=== PATIENT | male | born 1945 | race Caucasian/White ===

== ENCOUNTER 2018-08-20 11:28 | Outpatient (CLI) | payer BC, MEDICARE, SELFPAY ==
[2018-08-20 12:46] LABS: Hemoglobin A1C 5.7 % (4.5-6.2)
[2018-08-20 13:14] LABS: CREATININE 0.96 mg/dL (0.70-1.30); Cholesterol 208 mg/dL (50-200); HDL Cholesterol 71 mg/dL (40-60); LDL CHOLESTEROL 116 mg/dL (<100); Potassium 4.5 mmol/L (3.5-5.1); Triglyceride 82 mg/dL (30-150)
== END 2018-08-20 11:48 ==
PROVIDERS: PCP Family Medicine; Visit Provider Family Medicine
DX: I10 Essential (primary) hypertension (principal); E74.39 Other disorders of intestinal carbohydrate absorption
CPT/HCPCS: 36415; 80061; 83721; 82565; 83036; 84132

== ENCOUNTER 2020-02-25 10:29 | Outpatient (CLI) | payer BC, SELFPAY ==
[2020-02-25 13:11] LABS: Hemoglobin A1C 5.6 % (<5.7)
[2020-02-25 13:13] LABS: CREATININE 1.08 mg/dL (0.70-1.30); Calculated LDL 131 mg/dL (<100); Cholesterol 220 mg/dL (<200); HDL Cholesterol 72 mg/dL (40-60); Potassium 4.7 mmol/L (3.5-5.1); Triglyceride 89 mg/dL (<150)
== END 2020-02-25 10:49 ==
PROVIDERS: PCP Family Medicine; Visit Provider Family Medicine
DX: I10 Essential (primary) hypertension (principal); E78.5 Hyperlipidemia, unspecified; R73.9 Hyperglycemia, unspecified
CPT/HCPCS: 36415; 80061; 82565; 83036; 84132

== ENCOUNTER 2020-02-26 02:16 | Outpatient (CLI) | payer OTHER, SELFPAY ==
--- NOTE | 2020-02-26 06:15 | DI.US_ITS ---
EXAM: US AAA SCREENING CLINICAL HISTORY: remote smoker,SCREENING FOR AAA,Z87.891 COMPARISON: CT CHEST WITH CONTRAST from 06/30/2008 FINDINGS: Abdominal Aorta: Proximal: 3.1 x 3.1 cm Mid: 2.4 x 2.6 cm Distal: 2.3 by 2.8 cm Iliacs: Right: 1.1 cm Left: 0.9 cm IMPRESSION: Mild dilatation of the proximal aorta, 3.1 cm. DATA REPOSITORY:
== END 2020-02-26 02:36 ==
PROVIDERS: PCP Family Medicine; Visit Provider Family Medicine
DX: Z87.891 Personal history of nicotine dependence (principal)
CPT/HCPCS: 76706

== ENCOUNTER 2020-08-23 03:38 | Outpatient (CLI) | payer BC, SELFPAY ==
[2020-08-23 08:33] LABS: CREATININE 1.1 mg/dL (0.70-1.30); Potassium 4.5 mmol/L (3.5-5.1)
== END 2020-08-23 03:39 | disposition home or self-care (01) ==
LOC: LBO 03:38
PROVIDERS: PCP Family Medicine; Visit Provider Family Medicine
DX: I10 Essential (primary) hypertension (principal)
CPT/HCPCS: 36415; 82565; 84132

== ENCOUNTER 2021-11-14 03:28 | Outpatient (CLI) | payer BC, OTHER, SELFPAY ==
[2021-11-14 07:57] LABS: AST 19 U/L (15-37); BUN 31 mg/dL (7-18); CREATININE 1.3 mg/dL (0.70-1.30); Calcium 8.6 mg/dL (8.5-10.1); Calculated LDL 121 mg/dL (<100); Chloride 101 mmol/L (98-107); Cholesterol 205 mg/dL (<200); Estimated GFR 53.96 (mL/min/1.73m2); Glucose 125 mg/dL (74-106); HDL Cholesterol 76 mg/dL (40-60); LDL CHOLESTEROL 115 mg/dL (<100); Potassium 4.6 mmol/L (3.5-5.1); Sodium 138 mmol/L (136-145); Triglyceride 41 mg/dL (<150)
== END 2021-11-14 03:29 | disposition home or self-care (01) ==
LOC: LBO 03:28
PROVIDERS: PCP Family Medicine; Visit Provider Family Medicine
DX: E78.5 Hyperlipidemia, unspecified (principal); E87.1 Hypo-osmolality and hyponatremia; K76.0 Fatty (change of) liver, not elsewhere classified
CPT/HCPCS: 36415; 80048; 80061; 83721; 84450

== ENCOUNTER 2022-08-30 10:31 | Outpatient (CLI) | payer OTHER, BC, SELFPAY ==
--- NOTE | 2022-08-30 08:00 | DI.RAD_ITS ---
Exam(s) XR SHOULDER RT COMPLETE 2+V EXAM: XR SHOULDER RT COMPLETE 2+V CLINICAL HISTORY: right shoulder pain, M25.511. TECHNIQUE: 2D digital imaging was performed. Five views. COMPARISON: CR RIGHT SHOULDER COMPLETE from 11/10/2014 FINDINGS: BONES: No acute fracture is present. No bony destructive lesion is seen. Spurring greater and lesser tuberosities. JOINTS: No dislocation present. Spurring AC joint and margin of the glenoid. Minimal spurring at th e adjacent humeral head. SOFT TISSUE: Small calcification adjacent to the lesser tuberosity. IMPRESSION: Degenerative changes AC joint and glenohumeral joint. Calcification adjacent to lesser tuberosity co uld be related to the biceps tendon. DATA REPOSITORY: RADIATION DOSE DELIVERED:
== END 2022-08-30 10:51 ==
PROVIDERS: PCP Family Medicine; Visit Provider Nurse Practitioner Family
DX: M25.511 Pain in right shoulder (principal)
CPT/HCPCS: 73030

== ENCOUNTER 2022-09-22 01:26 | Outpatient (CLI) | payer OTHER, SELFPAY ==
--- NOTE | 2022-09-22 08:00 | DI.MRI_ITS ---
Exam(s) MR UPPER JOINT RT WO EXAM: MR UPPER JOINT RT WO CLINICAL HISTORY: RT SHOULDER pain, limited ROM after fall,M25.511,W19.XXXA. TECHNIQUE: Multiplanar multisequence MRI was performed. COMPARISON: CR XR SHOULDER RT COMPLETE 2+V from 08/30/2022 FINDINGS: BONES: There is a mildly displaced fracture of the anterior inferior glenoid. There is associated ma rrow edema. There is marrow edema seen in the superior lateral aspect of the humeral head. JOINTS: There are marked degenerative changes seen at the acromioclavicular joint. There is narrowin g of the glenohumeral joint. TENDONS: Supraspinatus: There is some hyperintense signal seen in the supraspinatus tendon consistent with a p artial tear. Infraspinatus: Unremarkable. Subscapularis: There is tendinosis of the subscapularis tendon. Teres [place]: Unremarkable. Biceps and [place]: The proximal biceps tendon is not visualized suspicious for least a partial tear. On the coronal images there is soft tissue at the superior aspect of the glenohumeral joint which ma y represent a component of a torn biceps anchor. MUSCLES: Unremarkable. GLENOID LABRUM: There is a glenoid labral tear at the inferior anterior margincorresponding to the gl enoid fracture. There is also hyperintense signal seen at the posterior inferior glenoid on the axia l images suspicious for tear. SOFT TISSUES: Unremarkable. LIGAMENTS: There is fluid signal seen in the region of the rotator interval suspicious for tear. OTHER: There is fluid seen in the subacromial subdeltoid bursa. IMPRESSION: 1. Mildly displaced fracture involving the anterior inferior glenoid. Bone contusion involving the ugalde perior lateral aspect of the humeral head. 2. Findings suspicious for rotator interval tear. 3. Decreased size of the biceps tendon suspicious for partial tear. There is soft tissue in the super ior aspect of the glenohumeral joint which may represent a component of a torn biceps anchor. 4. Marked degenerative changes of the acromioclavicular joint. 5. Hyperintense signal seen within the supraspinatus tendon consistent with an intrasubstance tear. DATA REPOSITORY:
== END 2022-09-22 01:46 ==
LOC: DI 01:26
PROVIDERS: PCP Family Medicine; Visit Provider Nurse Practitioner Family
DX: W19.XXXA Unspecified fall, initial encounter; S42.141A Displaced fracture of glenoid cavity of scapula, right shoulder, initial encounter for closed fracture; X58.XXXA Exposure to other specified factors, initial encounter; S46.211A Strain of muscle, fascia and tendon of other parts of biceps, right arm, initial encounter; M75.101 Unspecified rotator cuff tear or rupture of right shoulder, not specified as traumatic
CPT/HCPCS: 73221

== ENCOUNTER 2023-01-04 08:12 | Outpatient (CLI) | payer BC, OTHER, SELFPAY ==
[2023-01-04 12:25] LABS: Anion Gap 8.2 mmol/L (3-11); BUN 16 mg/dL (7-18); CO2 27.8 mmol/L (21.0-32.0); Calcium 9.1 mg/dL (8.5-10.1); Chloride 96 mmol/L (98-107); Estimated GFR 78.49 (mL/min/1.73m2); Glucose 121 mg/dL (74-106); Sodium 132 mmol/L (136-145)
== END 2023-01-04 08:13 | disposition home or self-care (01) ==
LOC: LOS 08:12
PROVIDERS: PCP Family Medicine; Referring Provider Nurse Practitioner Family; Visit Provider Nurse Practitioner Family
DX: I10 Essential (primary) hypertension (principal)
CPT/HCPCS: 36415; 80048

== ENCOUNTER 2023-02-28 03:37 | Outpatient (CLI) | payer BC, SELFPAY ==
[2023-02-28 12:47] LABS: Anion Gap 7.6 mmol/L (3-11); BUN 27 mg/dL (7-18); CO2 27.4 mmol/L (21.0-32.0); Calcium 8.9 mg/dL (8.5-10.1); Chloride 102 mmol/L (98-107); Estimated GFR 78.49 (mL/min/1.73m2); Glucose 119 mg/dL (74-106); Potassium 4.5 mmol/L (3.5-5.1); Sodium 137 mmol/L (136-145)
== END 2023-02-28 03:38 | disposition home or self-care (01) ==
LOC: LOS 03:37
PROVIDERS: PCP Family Medicine; Visit Provider Nurse Practitioner Family
DX: I10 Essential (primary) hypertension (principal)
CPT/HCPCS: 36415; 80048

== ENCOUNTER 2023-05-20 11:06 | Emergency (ER) | payer BC, OTHER, SELFPAY ==
[2023-05-20 11:14] VITALS: BP 182/73; PULSE 52; RESP 16; TEMP 36.8; O2SAT 97
--- NOTE | 2023-05-20 11:33 | W.ED.GENAD ---
HPI General Stated Complaint: Laceration PATRICK: 4 Date/Time Provider Initiated Documentation: 05/20/23 11:24. HPI Narrative: This 77-year-old male presents with right third digit injury on a skill saw just prior to arrival. Denies history of anticoagulation. Denies strength or sensation change. Tetanus is up-to-date in 2018. Related Data Home Medications Medication Instructions Recorded Confirmed triamcinolone acetonide 0.1 % 1 applic topical BID PRN rash #30 07/04/21 01/04/23 topical cream grams tadalafil 20 mg tablet (Cialis) 20 mg PO DAILY PRN erections #30 03/02/22 01/04/23 tabs betamethasone dipropionate 0.05 % 1 applic topical DAILY PRN 06/02/22 01/04/23 topical cream psoriasis #45 grams amlodipine 5 mg tablet 5 mg PO DAILY #90 tabs 07/24/22 01/04/23 tamsulosin 0.4 mg capsule (Flomax) 0.4 mg PO HS #90 tabs 07/26/22 01/04/23 losartan 50 mg-hydrochlorothiazide 2 tab PO DAILY #180 tabs 08/23/22 01/04/23 12.5 mg tablet cephalexin 500 mg capsule 500 mg PO Q6H 7 days #28 caps 05/20/23 cephalexin 500 mg capsule 500 mg PO Q6H 7 days #28 caps 05/20/23 Previous Rx's Medication Instructions Recorded triamcinolone acetonide 0.1 % 1 applic topical BID PRN rash #30 07/04/21 topical cream grams tadalafil 20 mg tablet (Cialis) 20 mg PO DAILY PRN erections #30 03/02/22 tabs betamethasone dipropionate 0.05 % 1 applic topical DAILY PRN 06/02/22 topical cream psoriasis #45 grams amlodipine 5 mg tablet 5 mg PO DAILY #90 tabs 07/24/22 tamsulosin 0.4 mg capsule (Flomax) 0.4 mg PO HS #90 tabs 07/26/22 losartan 50 mg-hydrochlorothiazide 2 tab PO DAILY #180 tabs 08/23/22 12.5 mg tablet cephalexin 500 mg capsule 500 mg PO Q6H 7 days #28 caps 05/20/23 cephalexin 500 mg capsule 500 mg PO Q6H 7 days #28 caps 05/20/23 Allergies Allergy/AdvReac Type Severity Reaction Status Date / Time lisinopril AdvReac Mild cough Verified 05/20/23 11:20 PFS All Active Problems (Updated 05/20/23 @ 12:22 by DOLLY Lester) Open finger fracture (Acute) Traumatic partial tear of right biceps tendon (Acute) Shoulder fracture, right (Acute) Rotator cuff tear arthropathy of right shoulder (Acute) Psoriasis (Chronic) Superficial partial thickness burn of ankle (Acute) Hyperlipidemia with target LDL less than 130 (Acute) AAA (abdominal aortic aneurysm) (Acute) Obesity (Chronic) Right knee pain (Acute) Serrated adenoma of colon (Acute) 02/26/18 [facility] [place];WITH HIGH GRADE DYSPLASIA Essential hypertension (Chronic) Seronegative arthritis (Acute 05/30/16) [facility] Peripheral vascular disease (Acute) Glucose intolerance (Acute 05/29/17) Erectile dysfunction (Acute 10/02/13) Disorder of thoracic spine (Acute) COMPRESSION FX Colon cancer (Acute 05/04/14) 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 Chronic obstructive lung disease (Acute) Carpal tunnel syndrome (Acute 05/22/13) Benign prostatic hyperplasia (Acute 11/17/13) Social History (Updated 03/23/22 @ 12:28 by Martha Hicks) Smoking/Tobacco Use Status: Former Tobacco Use tobacco type: cigarettes and cigars Quit Date: 05/07/07 Second Hand Exposure: Yes Smoking risk assessment performed?: Yes Alcohol Intake: current Alcohol Intake frequency: a few times a week Alcohol type: hard liquor Drug use: Never Household members: spouse Housing: house Communication Needs: None current occupation: truck technician Pets and animals: No Sexually active: Yes Do you think of yourself as: straight/heterosexual Current gender identity: male What is your relationship status?: How often do you talk on the phone with friends or family?: three or more times per week How often do you get together with friends or relatives?: once per week How often do you attend islam or adventist services?: 1-3 times per year Do you belong to any clubs or organized social groups?: yes Panel score (0-1 are the most socially isolated patients): 3 Special sonny needs: No Seatbelt use: always Helmet use: Yes Helmet use: sometimes Drive intox or ride w/intox truck driver instructor: No Do you feel safe at home: Yes Do you feel safe in your relationship?: Yes Course Vital Signs Vital signs: Vital Signs Temperature 36.8 C 05/20/23 11:14 Pulse 52 L 05/20/23 11:14 Respiratory Rate 16 05/20/23 11:14 Blood Pressure 182/73 H 05/20/23 11:14 Pulse Oximetry 97 05/20/23 11:14 Temperature 36.8 C 05/20/23 11:14 Pulse 52 L 05/20/23 11:14 Respiratory Rate 16 05/20/23 11:14 Blood Pressure 182/73 H 05/20/23 11:14 Pulse Oximetry 97 05/20/23 11:14 Procedures Laceration Laceration 1: Site: hand Side (If applicable): right Size (cm): 4 Description: irregular Local Anesthetic: Lidocaine 1% Amount of anesthesia used (mL): 5 Pre-repair: wound explored and irrigated extensively Skin layer closed with: other Size (cm): 4-0 Number of sutures: 8 Technique: simple, interrupted Medical Decision Making 77-year-old male presenting with laceration to finger on a skill saw, x-ray was ordered for additional evaluation for open fracture U-shaped laceration approximately 4 cm, macerated tissue, approximately 3 mm into nail Cap refill intact X-rays positive for tuft fracture, placed in a large bulky dressing after suture placement which patient tolerated without incident Neurovascularly intact with flexion and extension intact prior to nerve block Placed on Keflex Referral to orthopedics will need close outpatient reassessment for open fracture Reviewed vRad interpretation of x-ray where available Return precautions reviewed and patient expressed understanding Medical Records Medical records reviewed: Yes I reviewed the patient's medical records. Quality:[facility] Health Related Social Needs: No Data to Display Discharge Plan Disposition Patient Disposition: Home Discharge Details Clinical Impression: Open finger fracture Primary Care Provider: Chiki Hurd ED Provider: Thea White Home Meds and New Rx's Prescriptions: New cephalexin 500 mg capsule 500 mg PO Q6H 7 Days Qty: 28 0RF cephalexin 500 mg capsule 500 mg PO Q6H 7 Days Qty: 28 0RF Continued betamethasone dipropionate 0.05 % cream 1 applic topical DAILY PRN (Reason: psoriasis) Qty: 45 0RF Rx Instructions: Apply to both elbows and left upper thigh psoriasis daily as needed triamcinolone acetonide 0.1 % cream 1 applic topical BID PRN (Reason: rash) Qty: 30 1RF tadalafil [Cialis] 20 mg tablet 20 mg PO DAILY PRN (Reason: erections) Qty: 30 7RF amlodipine 5 mg tablet 5 mg PO DAILY Qty: 90 3RF tamsulosin [Flomax] 0.4 mg capsule 0.4 mg PO HS Qty: 90 3RF losartan-hydrochlorothiazide 50-12.5 mg tablet 2 tab PO DAILY Qty: 180 3RF Rx Instructions: dose increase 03/15/22 Discharge Instructions Instructions: Finger Fracture (ED) Additional Instructions: Please follow-up with orthopedics, if you do not hear from them by on Sunday, call for an appointment as you have an open finger fracture Take the antibiotic as prescribed, you received the first dose in the interim in the emergency department Tylenol 650 every 4 hours for pain control, do not exceed 3 g daily You may take the oxycodone sparingly for pain, this is addictive and can make you constipated, do not drive for 8 hours after taking this medication Keep the wound dry, change dressing every 48 hours Return earlier if spreading redness, fever, worsening pain Referrals: Valdez Rojas MD [ [facility]] - Discharge Data Discharge Date/Time-TO BE ENTERED AT DEPARTURE: 05/20/23 12:53
[2023-05-20] MEDS: Lidocaine 1% Multi-Dose 50 ML VIAL (11:39)
--- NOTE | 2023-05-20 11:47 | DI.RAD_ITS ---
Exam(s) XR FINGER RT MIDDLE EXAM: XR FINGER RT MIDDLE CLINICAL HISTORY: question fracture, skill saw. TECHNIQUE: 2D digital imaging was performed. COMPARISON: No exams were available for comparison FINDINGS: 3 views There is skin and subcutaneous avulsion on the volar aspect of the distal aspect of the 3rd-middle fi nger. There is a nondisplaced oblique fracture in the tuft of the distal phalanx, best seen on the frontal view. Small fragments off the tuft or seen on the lateral view. There is no radiopaque foreign body . IMPRESSION: Nondisplaced fracture of the tuft of the distal phalanx. Overlying soft tissue avulsion. DATA REPOSITORY: RADIATION DOSE DELIVERED:
--- NOTE | 2023-05-20 11:56 | DI.VRAD_ITS ---
PROCEDURE INFORMATION: Exam: XR Right Finger(s) Exam date and time: 05/20/2023 11:40 AM Age: 77 years old Clinical indication: Injury or trauma; Other: Skill saw; Laceration; Right; Middle finger TECHNIQUE: Imaging protocol: Radiologic exam of the right fingers. Views: Minimum 2 views. COMPARISON: MR UPPER JOINT RT WO 09/22/2022 9:43 AM FINDINGS: Bones/joints: Lucencies in the distal aspect of the distal phalanx of the affected finger consistent with nondisplaced fracture.. Degenerative changes in the thumb metacarpophalangeal joint Soft tissues: There is a defect in the soft tissues of the volar aspect of the tip of the finger consistent with soft tissue loss. IMPRESSION: 1. Lucencies in the distal aspect of the distal phalanx of the affected finger consistent with nondisplaced fracture.. 2. There is a defect in the soft tissues of the volar aspect of the tip of the finger consistent with soft tissue loss. Dictated and Authenticated by: Azalia Mckeon MD. Ordering:SURY Sidhu MD
== END 2023-05-20 12:53 | disposition home or self-care (01) ==
PROVIDERS: Emergency Provider Physician Assistant; PCP Family Medicine
DX: S62.662B Nondisplaced fracture of distal phalanx of right middle finger, initial encounter for open fracture (principal); W31.2XXA Contact with powered woodworking and forming machines, initial encounter; Y93.89 Activity, other specified; I10 Essential (primary) hypertension; Z87.891 Personal history of nicotine dependence
CPT/HCPCS: 12002; 99283; 73140

== ENCOUNTER 2024-06-03 06:16 | Emergency (ER) | payer OTHER, BC, SELFPAY ==
[2024-06-03] VITALS (14 sets, daily range): BP systolic 130–164; BP diastolic 60–114; PULSE 50–63; RESP 13–22; TEMP 36.1–36.5; O2SAT 93–98
--- NOTE | 2024-06-03 06:27 | ED.GENADUL_ITS ---
Discharge Plan Discharge Details Chief Complaint: Orthopedic Clinical Impression: Anterior dislocation of right shoulder Primary Care Provider: Chiki Hurd ED Provider: Juan Manuel Romero Meds and New Rx's Prescriptions: No Action amlodipine 5 mg tablet 5 mg PO DAILY Qty: 90 3RF tamsulosin [Flomax] 0.4 mg capsule 0.4 mg PO HS Qty: 90 3RF losartan-hydrochlorothiazide 50-12.5 mg tablet 2 tab PO DAILY Qty: 180 3RF Rx Instructions: dose increase 03/15/22 clotrimazole-betamethasone 1-0.05 % cream 1 applic topical BID 14 Days Qty: 15 1RF Rx Instructions: around lips HPI <Juan Manuel Romero MD - Last Filed: 06/03/24 07:47> General Mode of arrival: ambulatory . Date/Time Provider Initiated Documentation: 06/03/24 06:27 . Limitations to Documentation: no limitations . Information obtained by: patient and RN notes reviewed . HPI Narrative: Patient presents to ED with right shoulder pain. Patient is right-hand dominant. Slipped and fell while at work about 330 this morning. Because of snow swab had difficulty getting here. Has right shoulder pain only after landing directly on it when he fell. Denies striking his head and denies loss of consciousness. Has no neck or back pain. Has no chest pain or shortness of breath. Has no numbness or weakness distally in the right arm. Related Data Home Medications ?Medication ?Instructions ?Recorded ?Confirmed amlodipine 5 mg tablet 5 mg PO DAILY #90 tabs 07/02/23 06/03/24 tamsulosin 0.4 mg capsule (Flomax) 0.4 mg PO HS #90 tabs 07/20/23 06/03/24 losartan 50 mg-hydrochlorothiazide 2 tab PO DAILY #180 tabs 07/31/23 06/03/24 12.5 mg tablet clotrimazole-betamethasone 1 1 applic topical BID 2 weeks #15 03/25/24 06/03/24 %-0.05 % topical cream grams Previous Rx's ?Medication ?Instructions ?Recorded amlodipine 5 mg tablet 5 mg PO DAILY #90 tabs 07/02/23 tamsulosin 0.4 mg capsule (Flomax) 0.4 mg PO HS #90 tabs 07/20/23 losartan 50 mg-hydrochlorothiazide 2 tab PO DAILY #180 tabs 07/31/23 12.5 mg tablet clotrimazole-betamethasone 1 1 applic topical BID 2 weeks #15 03/25/24 %-0.05 % topical cream grams Allergies Allergy/AdvReac Type Severity Reaction Status Date / Time lisinopril AdvReac Mild cough Verified 06/03/24 06:27 General Stated Complaint: Orthopedic PATRICK: 3 Review of Systems <Juan Manuel Romero MD - Last Filed: 06/03/24 07:47> Narrative: Per HPI Exam <Juan Manuel Romero MD - Last Filed: 06/03/24 07:47> Narrative Exam Narrative: Const: WDWN elderly male in NAD. VS per triage. HEENT: NC/AT. Normal facial exam. Neck: Supple. Trachea midline. No posterior midline tenderness. Lungs: Normal respiratory effort. Lungs with breath sounds bilaterally. Cor: Good radial pulses. Neuro: A+O x 3. Normal speech, mentation, gait. Cranial nerves II - XII grossly intact. No gross motor or sensory deficit. Ext: No obvious deformity of the right upper extremity but very limited in any attempts at range of motion at the right shoulder. Sensation over the right deltoid area. Strength and sensation intact distally. Pulses intact distally. Course <Juan Manuel Romero MD - Last Filed: 06/03/24 07:47> Vital Signs Vital signs: Vital Signs Temperature 97 F L 06/03/24 06:21 Pulse 60 06/03/24 06:21 Respiratory Rate 16 06/03/24 06:21 Blood Pressure 161/60 H 06/03/24 06:21 Pulse Oximetry 98 06/03/24 06:21 Temperature 97 F L 06/03/24 06:21 Temperature Source Temporal Artery Scan 06/03/24 06:21 Pulse 60 06/03/24 06:21 Respiratory Rate 16 06/03/24 06:21 Blood Pressure 161/60 H 06/03/24 06:21 Blood Pressure Position Sitting 06/03/24 06:21 Pulse Oximetry 98 06/03/24 06:21 Oxygen Delivery Method Room Air 06/03/24 06:21 Oxygen Flow Rate 0 06/03/24 06:21 Pain Level 10 06/03/24 06:21 Procedure <Juan Manuel Romero MD - Last Filed: 06/03/24 07:47> Joint Reduction Joint #1: Date of Procedure: 06/03/24 Time of procedure: 07:39 Provider that performed the procedure: Juan Manuel Romero Standard Time Out Performed: Yes Patient Consented: Written Sedation administered by provider performing procedure: Yes Pre-procedure medication: Fentanyl Amount of pre-procedure medication(mg): 100 Side: right Joint reduction location: shoulder Shoulder Technique Used: other (Various techniques including Alvin, Park, traction-countertraction) Post-Reduction Neuro Exam: intact Post-Reduction Vascular Exam: intact Post Reduction X-Ray Obtained: Yes Patient Tolerated Procedure: well <Sofie Woods MD - Last Filed: 06/03/24 07:39> Procedural Sedation Date of Procedure: 06/03/24 Time of procedure: 07:39 Provider that performed the procedure: Sofie Woods Indication: Procedural optimization Patient Consented: Written Standard Time Out Performed: Yes Sedation Given: Propofol Amount of sedation(mg): 100 Preparation: monitor and storage bin tender applied, pulse oximeter, capnometry used, supplemental O2 applied, suction/airway equipment at bedside and IV secured Medical Decision Making <Juan Manuel Romero MD - Last Filed: 06/03/24 07:47> Patient here status post slip and fall at work with injury to the right shoulder. No obvious deformity but marked decrease in range of motion. Considered dislocation versus fracture versus muscular injury. He is neurovascular intact distally. Given IM ketorolac and x-ray of right shoulder ordered. Shoulder x-ray per my read with anterior dislocation. Patient last ate over 12 hours ago. He had a couple coffee 5 hours ago. He is an ASA class III with a Mallampati of 2. Dentures were removed. He was consented for reduction as well as procedural sedation. After IV established he was given a total of 100 mcg of fentanyl. Attempted reduction with just pain control but patient could not tolerate. Respiratory was called to bedside. Procedural sedation with propofol planned. Sedation carried out by Dr. Saint Guerrero, please see her separate note. Various techniques were employed and no definite time during procedure did shoulder seem to reduce. Patient was allowed to wake up from sedation and orthopedics was paged. Dr. Pulido arrived shortly after being called. Patient reporting that his shoulder feels much better. We were then able to range him completely with minimal pain. At some point seems that he did reduce despite lack of obvious clunk suggesting reduction. Patient is neurovascularly intact and awake. Postreduction film will be obtained. Patient signed out to Dr. Woods pending postreduction film and recovery from sedation. Imaging Data Radiologic Study: Attestation: I personally reviewed and interpreted this imaging study as follows: Imaging: X-Ray My impression: Right shoulder dislocation, no fracture Quality:SDOH Health Related Social Needs: Health related social needs problems related to housin g/economic circumstances (Z59.89) PFSH <Juan Manuel Romero MD - Last Filed: 06/03/24 07:47> All Active Problems (Updated 06/03/24 @ 07:46 by Juan Manuel Romero MD) Anterior dislocation of right shoulder (Acute) Shoulder pain, left (Acute) Esophageal thickening (Acute) Skin lesion of face (Acute) Rash of face (Acute) Traumatic partial tear of right biceps tendon (Acute) Shoulder fracture, right (Acute) Rotator cuff tear arthropathy of right shoulder (Acute) Psoriasis (Chronic) Obesity (Chronic) Right knee pain (Acute) Seronegative arthritis (Acute 05/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) [facility] Peripheral vascular disease (Acute) Glucose intolerance (Acute 05/29/17) Erectile dysfunction (Acute 10/02/13) Disorder of thoracic spine (Acute) COMPRESSION FX Carpal tunnel syndrome (Acute 05/22/13) Medical History Benign prostatic hyperplasia (11/17/13) Chronic obstructive lung disease 40 pack yr smoker Colon cancer (05/04/14) 2008 Transverse Colon Essential hypertension Serrated adenoma of colon [place] [facility] [place]ADE [place] Hyperlipidemia with target LDL less than 130 AAA (abdominal aortic aneurysm) Social History Smoking/Tobacco Use Status: Former Tobacco Use tobacco type: cigarettes and cigars Quit Date: 05/07/07 Tobacco: How many years used: 20 Second Hand Exposure: Yes Smoking risk assessment performed?: Yes Alcohol Intake: current Alcohol Intake frequency: a few times a week Alcohol type: hard liquor Drug use: Never Counseling given: No Household members: spouse Housing: house Communication Needs: None current occupation: dump truck operator Pets and animals: No Sexually active: Yes Do you think of yourself as: straight/heterosexual Current gender identity: male What is your relationship status?: How often do you talk on the phone with friends or family?: three or more times per week How often do you get together with friends or relatives?: once per week How often do you attend faith or advent services?: 1-3 times per year Do you belong to any clubs or organized social groups?: yes Panel score (0-1 are the most socially isolated patients): 3 Special sonny needs: No Seatbelt use: always Helmet use: Yes Helmet use: sometimes Drive intox or ride w/intox bus driver school: No Do you feel safe at home: Yes Do you feel safe in your relationship?: Yes
[2024-06-03] MEDS: Ketorolac 30 MG/ML VIAL IM (06:37)
--- NOTE | 2024-06-03 06:56 | DI.RAD_ITS ---
Exam(s) XR SHOULDER RT COMPLETE 2+V EXAM: XR SHOULDER RT COMPLETE 2+V CLINICAL HISTORY: fall/trauma. TECHNIQUE: 2D digital imaging was performed of the right shoulder. Three images were obtained. AP and Y views were obtained. COMPARISON: CR XR SHOULDER RT COMPLETE 2+V from 08/30/2022 FINDINGS: BONES: On the Y-view there is a triangular density posterior to the glenoid which may represent a sma ll fracture fragment. No bony destructive lesion is seen. JOINTS: There is an anterior dislocation of the right glenohumeral joint. There are [id number] degenerative changes seen at both the acromioclavicular and glenohumeral joint. SOFT TISSUE: Normal. IMPRESSION: Anterior dislocation of the right shoulder. Question of a small fracture fragment adjacent to the gl enoid. DATA REPOSITORY: RADIATION DOSE DELIVERED:
[2024-06-03] MEDS: fentaNYL 100 MCG/2 ML VIAL ×2 (07:05→07:09)
[2024-06-03] MEDS: Propofol 200 MG/20 ML VIAL 50 MG IVP (07:23)
[2024-06-03] MEDS: Propofol 200 MG/20 ML VIAL (07:26)
--- NOTE | 2024-06-03 07:39 | DI.VRAD_ITS ---
PROCEDURE INFORMATION: Exam: XR Right Shoulder Exam date and time: 06/03/2024 6:50 AM Age: 78 years old Clinical indication: Other: Fall/trauma TECHNIQUE: Imaging protocol: Radiologic exam of the right shoulder. Views: 2 or more views. COMPARISON: CR XR SHOULDER RT COMPLETE 2+V 08/30/2022 8:26 AM FINDINGS: Bones/joints: There is an anterior right shoulder dislocation. Soft tissues: Normal. IMPRESSION: There is an anterior right shoulder dislocation. Dictated and Authenticated by: Zenon Guo MD. Orderin Nick Zambrano MD
--- NOTE | 2024-06-03 07:40 | RESPIRATORY ---
Respiratory Therapy on emergency standby for conscious sedation. Ambu, ETC02, suction, nasal trumpet at bedside. Patient on 2L maintaining Sp02 95-98%. Procedure tolerated well. No distress noted.
--- NOTE | 2024-06-03 08:05 | W.EDPROG ---
Date of service: 06/03/24 Time of Service: 08:05 Medical Decision Making In brief, this is a 78-year-old male patient who was in this emergency department with a right shoulder injury found to be an anterior dislocation. Please see prior providers notes for full details of the assessment, as well as the sedation and reduction (procedural sedation performed by this provider, documented on the prior provider's note). At the time that I took over his care, his disposition was pending completion of a postreduction x-ray. This was performed, and does show successful reduction of his right shoulder. The patient was placed in a sling, with a plan to follow-up with orthopedics for reevaluation. At this time, the patient has had a full medical evaluation and is safe for discharge to home. They are hemodynamically stable, ambulatory, and tolerating PO. They are understanding of the follow-up plan and return precautions. They left our facility without incident. Sofie Woods MD Medical Records Medical records reviewed: Yes I reviewed the patient's medical records. Quality:SDOH Health Related Social Needs: Health related social needs problems related to housing/economic circumstances (Z59.89) Discharge Plan Disposition Patient Disposition: Home Discharge Details Clinical Impression: Anterior dislocation of right shoulder Primary Care Provider: Chiki Hurd ED Provider: Sofie Woods Home Meds and New Rx's Prescriptions: No Action amlodipine 5 mg tablet 5 mg PO DAILY Qty: 90 3RF tamsulosin [Flomax] 0.4 mg capsule 0.4 mg PO HS Qty: 90 3RF losartan-hydrochlorothiazide 50-12.5 mg tablet 2 tab PO DAILY Qty: 180 3RF Rx Instructions: dose increase 03/15/22 clotrimazole-betamethasone 1-0.05 % cream 1 applic topical BID 14 Days Qty: 15 1RF Rx Instructions: around lips Discharge Instructions Instructions: Shoulder Dislocation (DC) Additional Instructions: He was seen in the emergency department today for evaluation of a shoulder injury found to be a dislocation. Department you do full physical examination performed, and underwent sedation to have your shoulder reduced. You were placed in a sling which you need to be wearing at home until you can be evaluated by orthopedics in the next week or so. Please continue to use Tylenol and ibuprofen for management of pain. Please follow-up with your primary care provider in the next few days to discuss this visit and any symptoms that change, worsen, or persist. Thank you for allowing us to be part of your care. Stand Alone Forms: Work Release Referrals: Ulisses Pulido MD [ [facility] STAFF PHYSICIAN] - 1 week
--- NOTE | 2024-06-03 08:10 | DI.RAD_ITS ---
Exam(s) XR SHOULDER RT COMP POST REDUC EXAM: XR SHOULDER RT COMP POST REDUC CLINICAL HISTORY: post reduction. TECHNIQUE: 2D digital imaging was performed of the right shoulder. Three images were obtained. AP, Grashey and Y views were obtained. COMPARISON: CR XR SHOULDER RT COMPLETE 2+V from 08/30/2022 CR,XR XR SHOULDER RT COMPLETE 2+V from 06/03/2024 FINDINGS: BONES: There is a tiny density adjacent to the posterior aspect of the humeral head on the Y-view whi ch may represent a tiny fracture fragment versus dystrophic calcification. Calcifications seen anter iorly was seen on prior examinations and is suggestive of calcific tendinitis. No bony destructive l esion is seen. JOINTS: There has been successful reduction of the previously noted anterior dislocation of the right shoulder. Degenerative changes are again seen at the acromioclavicular and glenohumeral joints. SOFT TISSUE: Normal. IMPRESSION: Successful reduction of the right shoulder dislocation. DATA REPOSITORY: RADIATION DOSE DELIVERED:
== END 2024-06-03 08:34 | disposition home or self-care (01) ==
PROVIDERS: Emergency Provider Emergency Medicine; PCP Family Medicine
DX: S43.014A Anterior dislocation of right humerus, initial encounter (principal); I10 Essential (primary) hypertension; E78.5 Hyperlipidemia, unspecified; J44.9 Chronic obstructive pulmonary disease, unspecified; Z87.891 Personal history of nicotine dependence; W00.0XXA Fall on same level due to ice and snow, initial encounter; Y93.89 Activity, other specified; Y92.89 Other specified places as the place of occurrence of the external cause; Y99.0 Civilian activity done for income or pay
CPT/HCPCS: 00123; 23650; 73030; 96372; 99156; 99285; J1885; J2704; J3010

== ENCOUNTER 2024-07-11 09:13 | Outpatient (CLI) | payer BC, OTHER, SELFPAY ==
[2024-07-11 09:51] LABS: Hemoglobin A1C 5.7 % (<5.7)
[2024-07-11 10:10] LABS: CREATININE 1.2 mg/dL (0.70-1.30); Estimated GFR 62.67 (mL/min/1.73m2); Potassium 4.5 mmol/L (3.5-5.1)
== END 2024-07-11 09:14 | disposition home or self-care (01) ==
LOC: LBO 09:15
PROVIDERS: PCP Family Medicine; Visit Provider Family Medicine
DX: R73.9 Hyperglycemia, unspecified (principal); I10 Essential (primary) hypertension
CPT/HCPCS: 36415; 82565; 83036; 84132